=== PATIENT | female | born 1995 | race African-American/Black ===

== ENCOUNTER 2020-11-24 06:51 | Outpatient (CLI) | payer BC ==
[2020-11-24 15:55] LABS: #Eosinphils 0.1 10x3/uL (0.0-0.5); #Monocytes 0.5 10x3/uL (0.0-1.1); #Neutrophils 2.5 10x3/uL (1.5-8.4); %Basophils 0.4 % (0.0-2.0); %Eosinophils 0.9 % (0.0-6.0); %Lymphocytes 44.1 % (18.0-47.0); %Monocytes 8.5 % (0.0-10.0); %Neutrophils 45.6 % (40.0-75.0); Hemoglobin 13.6 g/dL (12.0-16.0); Mean Corpuscular HGB CONC 32.1 G/DL (32.0-36.0); Mean Corpuscular Hemoglobin 27.1 PG (27.0-33.0); Mean Corpuscular Volume 84.5 fl (80.0-100.0); Mean Platelet Volume 11.9 fl (7.4-10.4); Platelet Count 335 10x3/uL (130-400); RBC Distribution Width 16.5 % (11.5-14.5); Red Blood Cell (RBC) Count 5.02 10x6/uL (3.90-5.20); White Blood Cell (WBC) Count 5.6 10x3/uL (4.5-11.0)
[2020-11-24 16:13] LABS: Bilirubin Neg (Negative); Blood, Urine Negative (Negative); Clarity Clear (Clear); Glucose, Urine (Dipstick) Normal (Negative); Ketone, Urine Negative (Negative); Leukocyte Negative (Negative); Nitrite Negative (Negative); Protein, Urine (Dipstick) Negative (Neg-Trace); Urobilinogen Normal mg/dL (Less than 2)
[2020-11-24 16:17] LABS: BHCG - Serum Negative (NEGATIVE); Pregs Control Background? CLEAR/WHITE (CLR/WHITE); Pregs Control Bar Appear? YES (CONTROL BAR)
[2020-11-24 16:22] LABS: RBC/HPF 0-3 HPF (0-3); WBC/HPF 0-3 HPF (0-3)
[2020-11-24 16:23] LABS: Squamous Epithelial 0-3 HPF (0-3)
[2020-11-24 16:24] LABS: Bacteria/HPF Rare-Few HPF (None Seen)
[2020-11-25 02:23] LABS: SARS-CoV-2 MS2 Positive; SARS-CoV-2 N Gene Negative; SARS-CoV-2 S Gene Negative; SARS-CoV-2 by NAA Not Detected (NotDetected); SARS-CoV-2 orf1ab Negative
== END 2020-11-24 06:52 | disposition home or self-care (01) ==
LOC: LABBT 06:51
PROVIDERS: ATTEND Orthopaedic Surgery Hand Surgery
DX: Z01.812 Encounter for preprocedural laboratory examination (principal); Z20.822 Contact with and (suspected) exposure to COVID-19; M67.431 Ganglion, right wrist
CPT/HCPCS: 81001; 84703; 85025; 87635; U0003

== ENCOUNTER 2020-11-27 05:54 | Day surgery (SDC) | payer OTHER ==
[2020-11-25 10:58] VITALS: BMI 36.6
[2020-11-27] MEDS ORDERED: Betamet Acet/Betamet Na Ph 30 MG/5 ML VIAL ONE (08:13)
[2020-11-27] MEDS ORDERED: Bupivacaine PF 0.5% 30 ML VIAL ONE (08:13)
[2020-11-27] MEDS ORDERED: Bacitracin Zinc Ointment 30 gm TUBE ONE (08:13)
[2020-11-27] MEDS ORDERED: Sodium Chloride 0.9% 10 ML ONE (08:13)
[2020-11-27] MEDS ORDERED: Fentanyl 100 MCG/2 ML VIAL ONE (08:33)
[2020-11-27] MEDS ORDERED: Midazolam HCl 2 mg/2 ml Vial ONE (08:33)
[2020-11-27] MEDS ORDERED: PROPOFOL 200 MG/20 ML VIAL ONE (09:42)
[2020-11-27] MEDS ORDERED: Lidocaine 1% PF 5 ML VIAL ONE (09:42)
[2020-11-27] MEDS ORDERED: Ondansetron PF 4 MG/2 ML Vial ONE (09:42)
[2020-11-27] MEDS ORDERED: ePHEDrine 50 MG/ML VIAL ONE (09:42)
[2020-11-27] MEDS ORDERED: Ketorolac Tromethamine 30 MG/ML VIAL ONE (10:24)
[2020-11-27] MEDS ORDERED: HYDROcodone/Acetaminophen 5/325 mg Tablet ONE (11:22)
--- NOTE | 2020-11-27 11:58 | OP ---
DATE OF PROCEDURE: 11/27/2020 PREOPERATIVE DIAGNOSES: 1. Right wrist ganglion. 2. Right first dorsal compartment tenosynovitis. POSTOPERATIVE DIAGNOSES: 1. Right wrist ganglion. 2. Right first dorsal compartment tenosynovitis with very thick portion of the first dorsal compartment sheath over the tendon, splitting the ganglion with the sheath and the tendons being superficial to the connection between the two lobes of the ganglion stalk, primarily the radial scaphoid palmar aspect and mid lateral. PROCEDURES PERFORMED: 1. Right first dorsal compartment release with tenosynovectomy. 2. Right wrist radioscaphoid joint arthrotomy with ganglion cyst excision. 3. Application of short-arm splint, right. SPECIMEN REMOVED: Yes. It is a bilobed, each one 2 x 1.0 cm ganglion, right wrist. TOURNIQUET TIME: 32 minutes. INJECTABLE: 1. A total of 20 mL of 0.5% Marcaine, 10 prior to incision, 10 after incision closed. 2. Drip Celestone 3 mL into the joint and where the stalk was removed. ESTIMATED BLOOD LOSS: 10 mL. INDICATIONS FOR PROCEDURE: The patient with painful ganglion that comes and goes in terms of size, but is always persistent with pain on motion, especially with radial and ulnar deviation. DESCRIPTION OF PROCEDURE: After successful general endotracheal anesthesia, the limb was prepped and draped. We palpated a ganglion and found it had a larger lobe palmar to the first dorsal compartment and dorsal, so an incision was made zigzag with 1 angle on either side of the first dorsal compartment, but most of the incision slightly palmar to the first dorsal compartment. We dissected through skin and subcutaneous tissue, identified all the branches of superficial radial nerve and dissected free from the soft tissue around the obviously bilobed ganglion. We then began dorsally the nerve from the ganglion, and then the first dorsal compartment by opening the first dorsal compartment as distal one-half, more dorsal than volar in our incision, then we lifted the base of the first dorsal compartment off the ganglion, retracted the tendon and nerve dorsally, so we could then bring the primary portion of the mass palmarly. We then identified deep to the mass, the radial artery as it was volar and somewhat ulnar to the artery, but with the lobe connection being wrapped around the artery. We used blunt dissection with a right angle clamp tip until we freed it completely from the nerve and artery. We then found the joint dissection plane, ended down towards the joint, saw a 6 mm diameter stalk. We then elevated the stalk off the capsule, entered the joint capsule leaving a 6 mm wide x 2 mm opening in the capsule. The entire mass was lifted up en block. The first dorsal compartment tendons did not sublux. We released the tourniquet, had hemostasis easily, and we placed Celestone 3 mL in the joint cavity and the wound. We kept this covered for 5 minutes until we had complete hemostasis. We then closed the incision with interrupted 4-0 nylon in a mattress pattern, injected remaining 10 mL in a ryne-incisional technique without epinephrine using 0.5% Marcaine. Bulky dressing was applied along with a short-arm splint. The patient left the operating room without evidence of anesthetic or operative complication. Job ID: [id number]
== END 2020-11-27 12:15 | disposition home or self-care (01) ==
LOC: SDC 05:54
PROVIDERS: ATTEND Orthopaedic Surgery Hand Surgery
PROC: 0LT50ZZ Resection of Right Lower Arm and Wrist Tendon, Open Approach (ICD-10-PCS; principal; 2020-11-27)
DX: M67.431 Ganglion, right wrist (principal); M65.841 Other synovitis and tenosynovitis, right hand; Z79.899 Other long term (current) drug therapy; Z91.018 Allergy to other foods
CPT/HCPCS: 88304; J0690; J0702; J1885; J2250; J2405; J2704; J3010; J3490; S0020